=== PATIENT | male | born 1975 | race Caucasian/White ===

== ENCOUNTER → 2017-07-09 | Outpatient (CLI) | payer OTHER ==
--- NOTE | 2017-07-09 16:28 | XR ---
EXAMINATION TYPE: XR wrist complete LT DATE OF EXAM: 07/09/2017 COMPARISON: NONE HISTORY: Sprained wrist twisting injury TECHNIQUE: 4 view left wrist FINDINGS: No acute fractures are evident. Soft tissue swelling may be present along the dorsum of the wrist. Follow-up exam can be performed 7-10 days from acute trauma for continued pain. IMPRESSION: 1. Mild soft tissue swelling distal forearm. 2. No acute osseous abnormality evident at this time.
== END | disposition home or self-care (01) ==
LOC: RADXRMAIN 16:05
PROVIDERS: ATTEND Emergency Medicine
DX: M79.89 Other specified soft tissue disorders (principal); S63.502A Unspecified sprain of left wrist, initial encounter

== ENCOUNTER → 2018-04-23 | Outpatient (CLI) | payer OTHER ==
[2018-04-23 17:30] LABS: Rheumatoid Factor 5 IU/mL (0-15)
[2018-04-25 10:02] LABS: Lyme IgG/IgM 0.2 Index
== END | disposition home or self-care (01) ==
LOC: LABWHC1 09:28
PROVIDERS: ATTEND Nurse Practitioner Family
DX: D89.89 Other specified disorders involving the immune mechanism, not elsewhere classified (principal); H91.90 Unspecified hearing loss, unspecified ear; R53.83 Other fatigue
CPT/HCPCS: 36415; 84443; 85652; 86038; 86431; 86618; 86780

== ENCOUNTER → 2019-01-16 | Outpatient (CLI) | payer BC ==
[2019-01-16 09:49] LABS: Appearance,Urine Clear (Clear); Bilirubin,Urine Negative (Negative); Blood,Urine Negative (Negative); Color,Urine Yellow; Glucose,Urine (UA) Negative (Negative); Ketones,Urine Negative (Negative); Leukocyte Esterase,Urine Negative (Negative); Nitrite,Urine Negative (Negative); PH, Urine 6.5 (5.0-8.0); Protein,Urine Negative (Negative); Urobilinogen,Urine <2.0 mg/dL (<2.0)
[2019-01-16 09:56] LABS: HCT 55.2 % (39.0-53.0); HGB 17.9 gm/dL (13.0-17.5); MCH 29.6 pg (25.0-35.0); MCHC 32.5 g/dL (31.0-37.0); MCV 91.1 fL (80.0-100.0); Mean Platelet Volume 7.2; Platelet Count 218 k/uL (150-450); RBC 6.06 m/uL (4.30-5.90); RDW 14.1 % (11.5-15.5); WBC 6.6 k/uL (3.8-10.6)
[2019-01-16 16:42] LABS: T4, Free (Free Thyroxine) 0.9 ng/dL (0.80-1.80)
[2019-01-16 17:06] LABS: Hemoglobin A1C 5.6 % (4.0-6.0)
[2019-01-16 18:04] LABS: Albumin 4.4 g/dL (3.80-4.90); Albumin/Globulin Ratio 2.1 (1.60-3.17); Anion Gap 8.4 mmol/L (4.00-12.00); Calcium 9.2 mg/dL (8.7-10.3); Carbon Dioxide 26.6 mmol/L (21.6-31.8); Globulin 2.1 g/dL (1.6-3.3); LDL Cholesterol,Calculated 158.6 mg/dL (0.0-131.0); Potassium 4.5 mmol/L (3.5-5.5); Total Bilirubin 0.6 mg/dL (0.2-1.2); Total Protein 6.5 g/dL (6.2-8.2); VLDL Calculation 18.4 mg/dL (5.00-40.00)
== END | disposition home or self-care (01) ==
LOC: LABWHC1 08:47
PROVIDERS: ATTEND Family Medicine
DX: E29.1 Testicular hypofunction (principal)
CPT/HCPCS: 36415; 80053; 80061; 81003; 83036; 84153; 84403; 84439; 84443; 85027

== ENCOUNTER → 2024-06-30 | Outpatient (CLI) | payer BC ==
--- NOTE | 2024-06-30 22:41 | XR ---
EXAMINATION TYPE: XR Hip Bilateral Complete DATE OF EXAM: 06/30/2024 COMPARISON: None HISTORY: Pain in hips TECHNIQUE: Two-view bilateral hips FINDINGS: Femoral heads articulate with the acetabulum. Joint spaces are preserved. No acute fracture s or dislocations evident. IMPRESSION: 1. No suspicious osseous abnormality bilateral hips. [facility], Workstation: [facility], 06/30/2024 10:39 PM
--- NOTE | 2024-06-30 22:42 | XR ---
EXAMINATION TYPE: XR lumbosacral spine min 4V DATE OF EXAM: 06/30/2024 COMPARISON: None HISTORY: Low back pain TECHNIQUE: 5 view lumbar spine FINDINGS: There are 5 lumbar-type vertebral bodies. Pedicles are intact. No spondylolytic defects are evident. Facets are normal. Disc heights are preserved. Vertebral body heights are preserved. Minima l spondylosis is present IMPRESSION: 1. No acute osseous abnormality lumbar spine [facility], Workstation: [facility], 06/30/2024 10:40 PM
== END | disposition home or self-care (01) ==
LOC: RADXRMAIN 16:42
PROVIDERS: ATTEND Family Medicine
CPT/HCPCS: 72110; 73521

== ENCOUNTER → 2024-10-02 | Outpatient (CLI) | payer OTHER ==
--- NOTE | 2024-10-02 15:00 | MR ---
INDICATION: Patient age:Male; 49 years old; Reason for study: M54.50 LOW BACK PAIN, UNSPECIFIED; PHH. COMPARISONS: Lumbosacral spine radiograph 06/30/1934. TECHNIQUE: Multi planar, multi sequence imaging was performed utilizing: T1-weighted, T2-weighted, a nd turbo inversion recovery imaging of the lumbar spine. The patient was not given contrast. FINDINGS: The lumbar vertebral bodies do have preserved heights and alignment. Disc desiccation is identified at L3-L4 and L5-S1. Mild multilevel anterior osteophytosis with adjacent multilevel endpla te type II Modic changes. The conus medullaris and the distal spinal cord do appear unremarkable with regards to their signal intensity and morphology. L1-L2: No significant disc pathology is identified. The spinal canal and neural foramen are patent. L2-L3: No significant disc pathology is identified. The spinal canal and neural foramen are patent. L3-L4: Broad-based disc bulge with ligamentum flavum buckling and bilateral facet arthropathy contri buting to moderate central canal stenosis. There is abutment of the traversing nerve roots. Mild to m oderate bilateral neural foramina stenosis. L4-L5: Flattening of the posterior aspect of the disc. No disc herniation or significant central mehdi l stenosis. Bilateral ligamentum flavum buckling and facet arthropathy. Mild bilateral neural foramin al stenosis. L5-S1: Left paracentral disc protrusion with mild effacement of anterior thecal sac. There is abutmen t of the exiting left S1 nerve root. The disc protrusion extends into the subarticular zone. No signi ficant neural foraminal stenosis. Other significant findings: None. IMPRESSION: 1. L5-S1 left paracentral disc protrusion with a mild effacement of anterior thecal sac and abutment of the exiting left S1 nerve root. 2. L3-L4 disc bulge with ligamentum flavum buckling and bilateral facet adenopathy contributing to mo derate central canal stenosis. There is abutment of the traversing nerve roots. [facility], , 10/02/2024 2:58 PM
== END | disposition home or self-care (01) ==
LOC: RADMRIMAIN 11:31
PROVIDERS: ATTEND Family Medicine
DX: M51.27 Other intervertebral disc displacement, lumbosacral region (principal); M51.360 Other intervertebral disc degeneration, lumbar region with discogenic back pain only; M48.061 Spinal stenosis, lumbar region without neurogenic claudication
CPT/HCPCS: 72148

== ENCOUNTER → 2024-12-10 | Outpatient (CLI) | payer OTHER ==
[2024-12-10 14:41] VITALS: BP 143/90; PULSE 96; RESP 18; TEMP 97.6
--- NOTE | 2024-12-10 15:51 | P.PAINPG ---
Objective - Vital Signs Vital signs: Intake & Output 12/09/24 12/10/24 12/10/24 18:59 06:59 18:59 Weight 99.79 kg PQRS Measure Charge Sheet Comment: HISTORY OF PRESENT ILLNESS: A 49 yr old male w at side as a referral from the [facility] presents today w severe and chronic LBP > 2 yrs secondary to radiculopathy, spondylosis and facet arthropathy without myelopathy for evaluation. Pt states pain level is provoked at 9 /10 in intensity, constant, localized in the lumbar spine, predominantly axial, sharp in character w occasional shooting pain towards the buttocks, knees and LEs. Pain is provoked by over activity. Pain is alleviated by PT x 3 wks which he is currently in, medications, repositioning and rest . Oswestry axial pain score at 24. PMH: OA, GERD, ADD/ ADHD PSH: Denies SH: Never smoker, Rare ETOH use, No illicit drug use FH: Non contributory All: See list Meds: See list incl Celebrex, Lyrica 100mg BID REVIEW OF ORGAN SYSTEMS: CONSTITUTIONAL: No fevers or chills. No recent weight loss. NEUROLOGICAL: + numbness and tingling along the distal extremities. No seizure disorders or headaches. MUSCULOSKELETAL: + pain PSYCHIATRIC: Denies current depression or suicidal thoughts. Physical Examinations : Constitutional : Cooperative , not in acute distress . Neurologic : Cranial nerve II to XII intact. No focal neurological deficits. Psychiatric : alert & oriented x 3. Matching mood & appropriate affect. Judgment & insight intact. Musculoskeletal : Cervical Spine Motor strength in the deltoid and biceps: Normal right side. Normal Left side Motor strength biceps and the wrist extensors: Normal right side . Normal left side Motor strength in the triceps muscle: Normal right side. Normal left side Deep tendon reflexes: Normal at the biceps. Normal at Brachioradialis. Normal at triceps Vertebral body tenderness to deep palpation over Cervical facet loading test: positive bilaterally Spurling test: positive bilaterally Neck distraction test: positive bilaterally Helena sign: positive bilaterally Lumbar spine Motor strength lower extremities ,thigh and legs 5/5 Right side , 5/5 Left side Deep tendon reflexes : Normal Knee Jerk. Normal Ankle Jerk Vertebral body tenderness over L5 Vargas Test positive L5-S1 BL Lumbar facet Loading Test: positive Right / positive Left Range of motion of the lumbar spine Flexion 30 degrees, extension 10 degrees Straight Leg Raise test: Left/ Right positive at degrees Rina test: positive right / positive left. Severe tenderness over the Sacroiliac joint on the Right / Left sides Gaenslen test: positive bilaterally Seated flexion test: positive bilaterally. Sacral spine : Severe tenderness over the Sacroiliac joint: right side / left side Range of motion: Flexion of the lumbar spine <60 degrees Range of motion: Extension of the lumbar spine <20 degrees Gaenslen's Test positive Rina test: positive right side / left side Thigh Thrust Test Sacral Thrust Test Imaging: MRI non contrast lumbar spine from 10/02/24 reviewed Assessment/ Plan : L3-L4/ L4-L5/ L5-S1 radiculopathy Recommendation of KENNA L5-S1 #1. Would also benefit from R TFESI L3-L4, L4-L5. Risks, benefits of procedure discussed and patient verbalized understanding. Admits to anti- coagulant use or medical history of diabetes. Protocol for discontinuation/ continuation of medications natasha procedure discussed. Minimal anesthesia provided, if clinically indicated, consisting of Versed and Fentanyl. All questions answered. I have spent greater than 30 minutes on patient care today. Dr Gardner was available by phone for the evaluation of this patient. The time was used to review the medical records including relevant urine studies and Prescription history (MAPs), review of the available imaging, evaluation and examination of the patient, coordination of care with the medical staff and if applicable referring physicians, as well as creation of the medical record PQRS Narrative: Smoking Status Never smoker Home Medications: Ambulatory Orders Creatine 1 dose PO DAILY 05/01/16 Dextroamphetamine/Amphetamine [Adderall] 20 mg PO DAILY 05/01/16 EPINEPHrine [Epipen 2-Kevin] 0.3 mg IJ ONCE PRN #1 auto.injct 05/01/16 Glutamine [l-Glutamine] 500 mg PO DAILY 05/01/16 Multivit-Mins/Iron/Folic/Lycop [Centrum Men's Tablet] 1 tab PO DAILY 05/01/16 [place]-3 Fatty Acids/Fish Oil [Fish Oil 1,000 mg Softgel] 1 cap PO DAILY 05/01/16 Ranitidine HCl [Zantac] 150 mg PO BID #10 tab 05/01/16 Testosterone Cypionate [Depo-Testosterone] 200 mg IM TU 05/01/16 diphenhydrAMINE [Benadryl] 25 mg PO TID #15 capsule 05/01/16 predniSONE 50 mg PO DAILY #4 tab 05/01/16 Controlled Substance Measures - Controlled Substance Measures Is patient prescribed a controlled substance at discharge?: No
== END ==
LOC: PNWHC3 14:13
PROVIDERS: ATTEND Specialist
DX: M54.16 Radiculopathy, lumbar region (principal); Z91.030 Bee allergy status; Z91.048 Other nonmedicinal substance allergy status
CPT/HCPCS: 99211

== ENCOUNTER 2024-12-25 08:09 | Day surgery (SDC) | payer OTHER ==
[2024-12-23 14:58] VITALS: BMI 32.0
[2024-12-25 08:46] VITALS: RESP 16; TEMP 97.6
[2024-12-25] MEDS: LACTATED RINGERS 1,000 ML IV SCH (09:42)
[2024-12-25] MEDS: LACTATED RINGERS 1,000 ML IV ONE (09:43)
[2024-12-25] MEDS ORDERED: IOPAMIDOL M200 10 ML VIAL ONE (09:48)
[2024-12-25] MEDS ORDERED: methylPREDNISolone ACETATE 80 MG/ML 1 ML VIAL ONE (09:48)
[2024-12-25] MEDS ORDERED: MIDAZOLAM 2 MG/2 ML VIAL ONE (09:48)
[2024-12-25] MEDS: IV FLUID CONTINUATION 1,000 ML IV ONE (10:01)
--- NOTE | 2024-12-25 10:17 | FL ---
Fluoroscopy INDICATION: Pain FINDINGS: Fluoroscopy time: 5.1 seconds. Total dose area product (DAP) in uGy*m?, mGy*cm? (or similar): 0.46024 Images obtained: 1. Images document needle directed to the lumbosacral sacral junction region IMPRESSION: 1. Documentation of fluoroscopy. [facility], Workstation: [facility], 12/25/2024 10:15 AM
[2024-12-25 10:21] VITALS: BP 113/75; PULSE 81
--- NOTE | 2024-12-25 11:13 | P.PCN ---
Description of Procedure: PREOPERATIVE DIAGNOSIS: 1- Lumbar Degenerative Disc Diseases 2-Lumbar spondylosis with Facet arthropathy without myelopathy. 3-lumbar spinal stenosis POSTOPERATIVE DIAGNOSIS: 1-lumbar degenerative disc disease. 2-lumbar spondylosis with facet arthropathy without myelopathy. 3-lumbar spinal stenosis. PROCEDURE Injection of radio contrast material into L5-S1 interspace, interpretation of epidurogram, injection of steroid at L5-S1 epidural space under fluoroscopic guidance. ANESTHESIA: Lidocaine 1% subcutaneously. In OR continuous pulse ox, EKG, blood pressure and verbal communication was maintained with the patient. EBL: Minimal PROCEDURE INDICATION: Before the procedure were discussed with the patient detailed procedure, alternatives, complications including infection, bleeding, nerve damage, paralysis all of which could be permanent. Patient understands and all questions were answered. PROCEDURE DESCRIPTION : After getting consent, patient in OR in prone position. Back was prepped with chlorhexidine and draped in sterile fashion. After injecting 10 mL of 1% lidocaine subcutaneously, a 20-gauge Tuohy needle was introduced at L5-S1 interspace with loss of resistance technique using a syringe filled with air. Negative CSF, negative blood, negative paresthesia. Needle position was confirmed with AP and lateral view of the fluoroscope. After repeat negative aspiration 2 mL of Omnipaque 200 water soluble contrast was injected. Contrast was noted in the epidural space. No contrast was noted into intrathecal or intravascular space. After repeat negative aspiration 6 mL solution was injected intermittently which consists of 5 mL of preservative-free normal saline mixed with 1 mL of 80 mg Depo-Medrol. Needle was withdrawn intact. Skin was cleansed and Band-Aids was applied. DISPOSITION / PLANS: The patient tolerated the procedure well. No complication. The patient was placed in a supine position and transferred to the recovery area in a stable condition for observation. There was no evidence of lower extremity motor or sensory deficit after the procedure. Patient was discharged from the recovery room after meeting discharge criteria. Home discharge instructions were given to the patient by the staff. The patient was reexamined prior to discharge. The patient will schedule a follow up in the clinic in 2-4 weeks.
== END 2024-12-25 10:43 ==
LOC: ORPAIN 08:09
PROVIDERS: ATTEND Pain Medicine Interventional Pain Medicine
DX: M51.369 Other intervertebral disc degeneration, lumbar region without mention of lumbar back pain or lower extremity pain (principal); M47.816 Spondylosis without myelopathy or radiculopathy, lumbar region; M48.061 Spinal stenosis, lumbar region without neurogenic claudication
CPT/HCPCS: 62323; J2250; Q9966; J1010

== ENCOUNTER → 2025-01-21 | Outpatient (CLI) | payer OTHER ==
[2025-01-21 14:25] VITALS: BP 131/86; PULSE 98; RESP 16; TEMP 96.6
--- NOTE | 2025-01-21 16:58 | P.PAINPG ---
Objective - Vital Signs Vital signs: Intake & Output 01/20/25 01/21/25 01/21/25 18:59 06:59 18:59 Weight 101.151 kg PQRS Measure Charge Sheet Comment: HISTORY OF PRESENT ILLNESS: A 49 yr old male w at side as a referral from the [facility] presents today w severe and chronic LBP > 2 yrs secondary to radiculopathy, spondylosis and facet arthropathy without myelopathy for evaluation s/p KENNA L5-S1 #1. Pt states he experienced 100% pain relief x 1 mo s/p procedure. Pt states pain level is provoked at 1 /10 in intensity, constant, localized in the lumbar spine, predominantly axial, sharp in character w occasional shooting pain towards the buttocks, knees and LEs. Pain is provoked by over activity. Pain is alleviated by PT x 3 wks which he is currently in, medications, repositioning and rest . Interventional procedures include KENNA L5-S1 x1 Medications incllude Celebrex, Lyrica 100mg BID REVIEW OF ORGAN SYSTEMS: CONSTITUTIONAL: No fevers or chills. No recent weight loss. NEUROLOGICAL: + numbness and tingling along the distal extremities. No seizure disorders or headaches. MUSCULOSKELETAL: + pain PSYCHIATRIC: Denies current depression or suicidal thoughts. Physical Examinations : Constitutional : Cooperative , not in acute distress . Neurologic : Cranial nerve II to XII intact. No focal neurological deficits. Psychiatric : alert & oriented x 3. Matching mood & appropriate affect. Judgment & insight intact. Musculoskeletal : Cervical Spine Motor strength in the deltoid and biceps: Normal right side. Normal Left side Motor strength biceps and the wrist extensors: Normal right side . Normal left side Motor strength in the triceps muscle: Normal right side. Normal left side Deep tendon reflexes: Normal at the biceps. Normal at Brachioradialis. Normal at triceps Vertebral body tenderness to deep palpation over Cervical facet loading test: positive bilaterally Spurling test: positive bilaterally Neck distraction test: positive bilaterally Helena sign: positive bilaterally Lumbar spine Motor strength lower extremities ,thigh and legs 5/5 Right side , 5/5 Left side Deep tendon reflexes : Normal Knee Jerk. Normal Ankle Jerk Vertebral body tenderness over L5 Vargas Test positive L5-S1 BL Lumbar facet Loading Test: positive Right / positive Left Range of motion of the lumbar spine Flexion 30 degrees, extension 10 degrees Straight Leg Raise test: Left/ Right positive at degrees Rina test: positive right / positive left. Severe tenderness over the Sacroiliac joint on the Right / Left sides Gaenslen test: positive bilaterally Seated flexion test: positive bilaterally. Sacral spine : Severe tenderness over the Sacroiliac joint: right side / left side Range of motion: Flexion of the lumbar spine <60 degrees Range of motion: Extension of the lumbar spine <20 degrees Gaenslen's Test positive Rina test: positive right side / left side Thigh Thrust Test Sacral Thrust Test Imaging: MRI non contrast lumbar spine from 10/02/24 reviewed Assessment/ Plan : L3-L4/ L4-L5/ L5-S1 radiculopathy Will manage residual pain and may RTC on an as needed basis. All questions answered. I have spent greater than 30 minutes on patient care today. Dr Gardner was available by phone for the evaluation of this patient. The time was used to review the medical records including relevant urine studies and Prescription history (MAPs), review of the available imaging, evaluation and examination of the patient, coordination of care with the medical staff and if applicable referring physicians, as well as creation of the medical record PQRS Narrative: Smoking Status Never smoker Hx Alcohol Use (MH) No Home Medications: Ambulatory Orders Dextroamphetamine/Amphetamine [Adderall] 20 mg PO DAILY 05/01/16 EPINEPHrine [Epipen 2-Kevin] 0.3 mg IJ ONCE PRN #1 auto.injct 05/01/16 Multivit-Mins/Iron/Folic/Lycop [Centrum Men's Tablet] 1 tab PO DAILY 05/01/16 [place]-3 Fatty Acids/Fish Oil [Fish Oil 1,000 mg Softgel] 1 cap PO DAILY 05/01/16 Testosterone Cypionate [Depo-Testosterone] 200 mg IM Q30D 05/01/16 Celecoxib [CeleBREX] 200 mg PO DAILY 12/23/24 Cetirizine HCl [Zyrtec] 10 mg PO DAILY 12/23/24 Omeprazole (Unknown Dose) 1 tab PO DAILY 12/23/24 Controlled Substance Measures - Controlled Substance Measures Is patient prescribed a controlled substance at discharge?: No
== END ==
LOC: PNWHC3 14:14
PROVIDERS: ATTEND Specialist
DX: M47.27 Other spondylosis with radiculopathy, lumbosacral region (principal); Z91.030 Bee allergy status; Z91.048 Other nonmedicinal substance allergy status
CPT/HCPCS: 99211